=== PATIENT | female | born 1970 | race Caucasian/White ===

== ENCOUNTER → 2025-04-01 12:01 | Outpatient (REF) | payer BC, SELFPAY | LOC: HWRAD 12:01 | PROVIDERS: ATTENDING PHYSICIAN Internal Medicine | DX: M54.16 Radiculopathy, lumbar region (principal) | CPT/HCPCS: 72110 ==

== ENCOUNTER → 2025-06-20 14:42 | Outpatient (REF) | payer BC, SELFPAY | LOC: RCS 14:42 | PROVIDERS: ATTENDING PHYSICIAN Internal Medicine | DX: R01.1 Cardiac murmur, unspecified (principal) | CPT/HCPCS: 93306 ==